=== PATIENT | female | born 1965 | race Caucasian/White ===

== ENCOUNTER 2021-04-03 13:31 | Emergency (ER) | payer OTHER, SELFPAY ==
--- NOTE | 2021-04-03 13:31 | ECG_ITS ---
APPROVED REPORT Exam: Resting ECG HR:66 bpm ECG Measurements Heart Rate 66 AXES ND 156 P 43 QRSd 94 QRS 7 QT 404 T 28 QTc 423 Conclusion Normal sinus rhythm Possible Left atrial enlargement Borderline ECG Electronically signed by : Julio Gallo MD 04/04/2021 17:58:09
[2021-04-03 13:38] VITALS: BP 152/99; PULSE 80; RESP 18; TEMP 36.8; O2SAT 98; BMI 32.8
[2021-04-03 14:01] VITALS: BP 130/79; PULSE 60; RESP 14; O2SAT 97
--- NOTE | 2021-04-03 14:14 | CT_ITS ---
PROCEDURE INFORMATION: Exam: CTA Chest With Contrast Exam date and time: 04/03/2021 2:14 PM Age: 55 years old Clinical indication: Pain; Chest pressure; Additional info: Chest pain comes and goes left sided since 9am TECHNIQUE: Imaging protocol: Computed tomographic angiography of the chest with contrast. 3D rendering (Not supervised by radiologist): MIP and/or 3D reconstructed images were created by the technologist. Radiation optimization: All CT scans at this facility use at least one of these dose optimization techniques: automated exposure control; mA and/or kV adjustment per patient size (includes targeted exams where dose is matched to clinical indication); or iterative reconstruction. Contrast material: ISOVUE 370; Contrast volume: 75 ml; Contrast route: INTRAVENOUS (IV); COMPARISON: No relevant prior studies available. FINDINGS: Pulmonary arteries: Negative for acute pulmonary embolism. Aorta: Unremarkable. No aortic aneurysm. No aortic dissection. Lungs: Unremarkable. No consolidation. No masses. Pleural spaces: Unremarkable. No pneumothorax. No pleural effusion. Heart: Unremarkable. No cardiomegaly. No pericardial effusion. Lymph nodes: Unremarkable. No enlarged lymph nodes. Bones/joints: Unremarkable. No acute fracture. Soft tissues: Bilateral breast implants. Other findings: Previous granulomatous exposure. IMPRESSION: Negative for acute pulmonary embolism.
[2021-04-03 14:27] LABS: Basophils # 0.1 K/mm3 (0-0.2); Basophils % 1.3 % (0.1-2.0); Eosinophils # 0.3 K/mm3 (0.0-0.4); Eosinophils % 4.1 % (0.1-12.0); Hematocrit 45.4 % (37.0-47.0); Hemoglobin 14.9 g/dL (12.2-16.2); Lymphocytes # 1.8 K/mm3 (0.7-4.5); Lymphocytes % 27.7 % (10-50); Mean Corpuscular HGB Conc 32.9 g/dL (31.8-35.4); Mean Corpuscular Hemoglobin 30.3 pg (27.0-31.2); Mean Corpuscular Volume 92.3 fl (81-99); Mean Platelet Volume 7.7 fl (7.4-10.4); Monocytes # 0.3 K/mm3 (0.1-1.0); Neutrophils % 61.9 % (37.0-80.0); Platelet Count 196 K/mm3 (142-424); Red Blood Count 4.91 M/mm3 (4.20-5.40); Red Cell Distribution Width 13.9 % (11.5-17.5); White Blood Count 6.5 K/mm3 (4.8-10.8)
[2021-04-03 14:30] VITALS: BP 136/85; PULSE 67; RESP 14; O2SAT 97
[2021-04-03 14:33] LABS: Alanine Aminotransferase 27 U/L (12-78); Albumin Level 4.1 g/dl (3.5-5.0); Albumin/Globulin Ratio 1.3 (1.1-1.8); Alkaline Phosphatase 102 U/L (38-126); Anion Gap 9.5 mEq/L (5-15); Aspartate Amino Transferase 40 U/L (14-36); Bilirubin,Total 0.5 mg/dl (0.2-1.3); Blood Urea Nitrogen 14 mg/dl (7-17); Calcium 9.5 mg/dl (8.4-10.2); Carbon Dioxide 29 mmol/L (22.0-30.0); Chloride 104 mmol/L (98-107); Creatinine Clearance Estimated 138 mL/min (50-200); Estimated Glomerular Filt Rate 87 ml/min (>60); GFR (African American) 106 ML/MIN (>60); Globulin 3.2 g/dL (1.3-3.2); Glucose 106 mg/dl (74-100); Potassium 3.5 mmoL/L (3.5-5.1); Sodium 139 mmol/L (136-145); Total Protein,Serum 7.3 g/dl (6.3-8.2)
--- NOTE | 2021-04-03 14:33 | PC.NURSE ---
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
[2021-04-03 14:34] LABS: Activated Partial Thrombo Time 26.5 seconds (22.8-30.6); INR 0.94 (0.9-1.1); Prothrombin Time 10.7 seconds (10.1-12.5)
[2021-04-03 14:45] LABS: Troponin I < 0.01 ng/ml (0.00-0.034)
--- NOTE | 2021-04-03 16:25 | PC.NURSE ---
AFTER GI COCKTAIL PT HAS NO PAIN , RESTING COMFORTABLY
--- NOTE | 2021-04-03 16:35 | [facility].EDGENADL ---
ED Disposition Clinical Impression: Atypical chest pain Disposition: Home, Self-Care Condition on Discharge: Good Instructions: DI for Chest Pain Additional Instructions: Please follow up with your primary care physician and neurology team outpatient for further management. Please continue to take your PPI as prescribed for acid reflux. Please return back to emergency department if symptoms reoccur, difficulty breathing, heart palpitations or any other concerning symptoms. Referrals: Provider,Referral, [Primary Care Provider] - Time of Disposition: 14:00 - Critical Care Critical Care Time: No Attestation: On 04/03/21, the high probability of a clinically significant, sudden or life threatening deterioration of the following system(s) required my full and direct attention, intervention and personal management. The time I documented below is in addition to time spent performing reported procedures but includes the following listed in this critical care notation. Medical Decision Making - Medical Records Medical records reviewed: Yes: I reviewed the patient's medical records. - Jose Inquiry Pt receiving controlled substance: No Jose was queried for this patient: No Vital Signs: 04/03/21 13:38 04/03/21 14:01 04/03/21 14:30 Temperature 98.2 F Temperature Source Oral Pulse Rate 60 67 Pulse Rate [Right Radial] 80 Respiratory Rate 18 14 14 Blood Pressure 130/79 136/85 Blood Pressure [Right Arm] 152/99 H Blood Pressure Mean 96 102 Blood Pressure Mean [Right Arm] 116 Blood Pressure Source Blood Pressure Source [Right Arm] Automatic Cuff Blood Pressure Position Blood Pressure Position [Right Arm] Sitting 02 Sat by Pulse Oximetry 98 97 97 Oxygen Delivery Method Room Air Room Air Room Air 04/03/21 17:21 Temperature 98.3 F Temperature Source Oral Pulse Rate 54 L Pulse Rate [Right Radial] Respiratory Rate 17 Blood Pressure 115/76 Blood Pressure [Right Arm] Blood Pressure Mean Blood Pressure Mean [Right Arm] Blood Pressure Source Automatic Cuff Blood Pressure Source [Right Arm] Blood Pressure Position Sitting Blood Pressure Position [Right Arm] 02 Sat by Pulse Oximetry Oxygen Delivery Method Room Air - Lab Data Lab results reviewed: Yes: I reviewed the patient's lab results. Lab Results 04/03/21 14:21: WBC 6.5, RBC 4.91, Hgb 14.9, Hct 45.4, MCV 92.3, MCH 30.3, MCHC 32.9, RDW 13.9, Plt Count 196, MPV 7.7, Neut % (Auto) 61.9, Lymph % (Auto) 27.7, Hand % (Auto) 5.0, Eos % (Auto) 4.1, Baso % (Auto) 1.3, Neut # (Auto) 4.0, Lymph # (Auto) 1.8, Hand # (Auto) 0.3, Eos # (Auto) 0.3, Baso # (Auto) 0.1 04/03/21 14:21: PT 10.7, INR 0.94, APTT 26.5 04/03/21 14:21: Sodium 139, Potassium 3.5, Chloride 104, Carbon Dioxide 29, Anion Gap 9.5, BUN 14, Creatinine 0.70, Estimated Creat Clear 138, Estimated GFR 87, Est GFR ( Amer) 106, Glucose 106 H, Calcium 9.5, Total Bilirubin 0.5, AST 40 H, ALT 27, Alkaline Phosphatase 102, Troponin I < 0.01, Total Protein 7.3, Albumin 4.1, Globulin 3.2, Albumin/Globulin Ratio 1.3 Result diagrams: 04/03/21 14:21 04/03/21 14:21 Orders (Tests/Meds): ED MEDICATIONS Discontinued Medications Generic Name Dose Route Start Last Admin Trade Name Freq PRN Reason Stop Dose Admin Acetaminophen/Codeine Phosphate 1 each 04/03/21 15:50 04/03/21 16:06 Acetaminophen/Codeine #3 Tab PO 04/03/21 15:51 1 each ONCE ONE Administration Belladonna Alkaloids 60 ml 04/03/21 15:59 04/03/21 16:05 Gi Cocktail 60ml Udc PO 04/03/21 16:00 60 ml ONCE ONE Administration Ibuprofen 600 mg 04/03/21 15:50 04/03/21 16:05 Ibuprofen 600 Mg Tablet PO 04/03/21 15:51 600 mg ONCE ONE Administration Iopamidol 75 ml 04/03/21 15:07 04/03/21 15:08 Iopamidol-370 (76%);100ml Bottle IV 04/03/21 15:08 75 ml ONCE ONE Administration Sodium Chloride 10 ml 04/03/21 15:07 04/03/21 15:08 Sodium Chloride 0.9% 10ml Syr (Rad Only) IV 03/18
[2021-04-03 17:21] VITALS: BP 115/76; PULSE 54; RESP 17; TEMP 36.8; O2SAT 97
== END 2021-04-03 17:21 | disposition home or self-care (01) ==
PROVIDERS: Emergency Provider Student in an Organized Health Care Education/Training Program
DX: R07.89 Other chest pain (principal); K21.9 Gastro-esophageal reflux disease without esophagitis
CPT/HCPCS: 71275; 80053; 84484; 85025; 85610; 85730; 93005; 93041; 99283; Q9967